=== PATIENT | male | born 1995 | race Hispanic/Latino ===

== ENCOUNTER 2017-02-26 03:22 | Emergency (ER) | payer SELFPAY ==
[2017-02-26 03:27] VITALS: BMI 25.1
[2017-02-26 03:30] VITALS: TEMP 98.9
[2017-02-26 04:46] LABS: BASO % 0.3 % (0.0-2.0); EOS % 0.1 % (0.0-4.0); HEMOGLOBIN 14.3 g/dL (12.0-18.0); LYMPH # 1.3 K/uL (1.0-4.3); LYMPH % 19.8 % (20.0-40.0); MEAN CELL VOLUME 88.7 fl (80.0-94.0); MEAN CORPUSCULAR HEMOGLOBIN 30.2 pg (27.0-31.0); MEAN PLATELET VOLUME 7.5 fl (7.2-11.7); MONO # 0.3 K/uL (0.0-0.8); MONO % 5.3 % (0.0-10.0); NEUT # 4.8 K/uL (1.8-7.0); NEUT % 74.5 % (50.0-75.0); RBC 4.73 Mil/uL (4.40-5.90); WHITE BLOOD COUNT 6.4 K/uL (4.8-10.8)
[2017-02-26 04:58] LABS: ALB/GLOB RATIO 1.5 (1.0-2.1); ALBUMIN 4.4 g/dL (3.5-5.0); ALT/SGPT 47 U/L (21-72); AST/SGOT 38 U/L (17-59); BLOOD UREA NITROGEN 16 mg/dl (9-20); GFR AFRICAN-AMERICAN > 60; GFR NON-AFRICAN AMERICAN > 60
--- NOTE | 2017-02-26 05:05 | ED PDOC ---
HPI: Psych/Substance Abuse Time Seen by Provider: 02/26/17 03:34 Chief Complaint (Nursing): Medical Clearance Chief Complaint (Provider): Medical Clearance History Per: Patient Modifying Factor(s): Alcohol Associated Symptoms: Agitation Additional Complaint(s): 22 year old male brought in by [employer] presents to ED for medical/psychiatric clearance and has a past medical history of rheumatoid arthritis. [employer] states that patient fell and hit his head while being pursued. Patient denies medical complaints and admits to EtOH ingestion. Police confirm no LOC and informed provider that patient mentioned suicide when in custody. PCP: ALESSANDRA Past Medical History Reviewed: Historical Data, Nursing Documentation, Vital Signs Vital Signs: Last Vital Signs Temp 98.9 F 02/26/17 03:27 Pulse 143 H 02/26/17 03:27 Resp 18 02/26/17 03:27 BP 154/90 H 02/26/17 03:27 Pulse Ox 98 02/26/17 03:27 - Medical History PMH: Rheumatoid Arthritis Denies: Chronic Kidney Disease - Surgical History Surgical History: No Surg Hx - Family History Family History: States: No Known Family Hx - Social History Current smoker - smoking cessation education provided: No Ex-Smoker (has not smoked in the last 12 months): No Alcohol: None Drugs: Denies - Allergies Allergies/Adverse Reactions: Allergies Allergy/AdvReac Type Severity Reaction Status Date / Time No Known Allergies Allergy Verified 02/26/17 03:27 Review of Systems ROS Statement: Except As Marked, All Systems Reviewed And Found Negative ( Patient denies all medical complaints) Neurological: Negative for: Other ((-) LOC) Psych: Positive for: Suicidal ideation Physical Exam - Reviewed Nursing Documentation Reviewed: Yes Vital Signs Reviewed: Yes - Physical Exam Appears: Positive for: Well, Non-toxic, No Acute Distress Head Exam: Positive for: ATRAUMATIC Skin: Positive for: Normal Color, Warm, Dry Eye Exam: Positive for: EOMI, Normal appearance, PERRL ENT: Positive for: Normal ENT Inspection Neck: Positive for: Normal, Painless ROM, Supple Cardiovascular/Chest: Positive for: Regular Rate, Rhythm. Negative for: Murmur Respiratory: Positive for: Normal Breath Sounds. Negative for: Respiratory Distress Gastrointestinal/Abdominal: Positive for: Normal Exam, Soft Back: Positive for: Normal Inspection Extremity: Positive for: Normal ROM. Negative for: Deformity Neurologic/Psych: Positive for: Alert. Negative for: Motor/Sensory Deficits - Laboratory Results Result Diagrams: 02/26/17 04:40 02/26/17 04:40 - ECG O2 Sat by Pulse Oximetry: 98 (RA) Pulse Ox Interpretation: Normal - Critical Care Total Time (In Min): 30 Medical Decision Making Medical Decision Makin Initial impression: head injury and suicidal ideation in setting of police arrest Initial plan: * CT HEAD * EtOH serum * Labs * UDrug screen * Crisis eval * Ativan 2mg IM * Haldol 5mg IM * 1:1 OBS * Accucheck * Restraints Restraints and chemical sedation used due to patient's uncooperative and aggressive nature. 0627 FINDINGS: Brain: Unremarkable. No hemorrhage. No significant white matter disease. No edema. Ventricles: Unremarkable. No ventriculomegaly. Bones/joints: Unremarkable. No acute fracture. Soft tissues: Unremarkable. Sinuses: Unremarkable as visualized. No acute sinusitis. Mastoid air cells: Unremarkable as visualized. No mastoid effusion. IMPRESSION: No evidence of an acute intracranial abnormality. 0654 Patient is awake, alert, and oriented x3. Crisis evaluated patient and has deemed him stable for discharge into police custody for incarceration. Dx: alcohol induced mood disorder Scribe Attestation: Documented by Mary Rodriguez acting as a scribe for Sherman Marshall MD. Scribe Attestation: All medical record entries made by the Scribe were at my direction and personally dictated by me. I have reviewed the chart and agree that the record accurately reflects my personal performance of the history, physical exam, medical decision making, and the department course for this patient. I have also personally directed, reviewed, and agree with the discharge instructions and disposition. Disposition - Clinical Impression Clinical Impression: Alcohol-induced mood disorder, Head injury - Disposition Disposition: Routine/Home Disposition Time: 06:56 Condition: STABLE Additional Instructions: Patient is medically and psychiatrically stable for incarceration Instructions: Head Injury (ED) Forms: [employer] ([place])
[2017-02-26 06:39] VITALS: BP 102/43; PULSE 92; RESP 14
[2017-02-26 06:56] VITALS: O2SAT 98
--- NOTE | 2017-02-26 08:35 | CT ---
PROCEDURE: CT HEAD WITHOUT CONTRAST. HISTORY: head injury COMPARISON: None available. TECHNIQUE: Axial computed tomography images were obtained through the head/brain without intravenous contrast. Radiation dose: Total exam DLP = 1754.5 mGy-cm. This CT exam was performed using one or more of the following dose reduction techniques: Automated exposure control, adjustment of the mA and/or kV according to patient size, and/or use of iterative reconstruction technique. FINDINGS: HEMORRHAGE: No intracranial hemorrhage. BRAIN: No mass effect or edema. No atrophy or chronic microvascular ischemic changes. VENTRICLES: Unremarkable. No hydrocephalus. CALVARIUM: Unremarkable. PARANASAL SINUSES: Unremarkable as visualized. No significant inflammatory changes. MASTOID AIR CELLS: Unremarkable as visualized. No inflammatory changes. OTHER FINDINGS: None. IMPRESSION: No acute intracranial pathology.
== END 2017-02-26 07:05 ==
LOC: H.ER 03:22
DX: R45.851 Suicidal ideations (principal); F10.94 Alcohol use, unspecified with alcohol-induced mood disorder; S09.90XA Unspecified injury of head, initial encounter; W19.XXXA Unspecified fall, initial encounter; Y92.89 Other specified places as the place of occurrence of the external cause; M06.9 Rheumatoid arthritis, unspecified
CPT/HCPCS: 70450; 80053; 85025; 96372; 99282; G0480; J1630; J2060